=== PATIENT | male | born 1995 | race African-American/Black ===

== ENCOUNTER 2017-07-20 17:25 | Emergency (ER) | payer OTHER | END 2017-07-20 18:40 | disposition home or self-care (01) | LOC: M ED 17:25 | DX: S01.01XA Laceration without foreign body of scalp, initial encounter (principal); S01.112A Laceration without foreign body of left eyelid and periocular area, initial encounter; W22.09XA Striking against other stationary object, initial encounter; Y92.89 Other specified places as the place of occurrence of the external cause; Z96.9 Presence of functional implant, unspecified; Z98.890 Other specified postprocedural states | CPT/HCPCS: 99282 ==